=== PATIENT | female | born 1995 | race Caucasian/White ===

== ENCOUNTER → 2017-02-16 14:11 | Outpatient (CLI) | payer BC, SELFPAY ==
--- NOTE | 2017-02-16 14:20 | US_ITS ---
US thyroid HISTORY: ITS.REASON: ENLARGED THYROID ORDERING PHYSICIAN: Saul Mcmillan MD PATIENT AGE: 21 years COMPARISON: None FINDINGS: Right lobe: 4.5 x 1.7 x 2.2 cm. There is heterogeneous echogenicity. No discrete nodule identified. Left lobe: 3.9 x 1.3 x 1.9 cm. There is heterogeneous echogenicity. There is a 1 x 0.8 cm isoechoic nodule in the lower pole Isthmus: Prominent at 5 mm IMPRESSION: Mildly enlarged thyroid gland with heterogeneous echogenicity without isoechoic 1 cm nodule in the lower pole on the left with low suspicion for malignancy. Consider 6 month follow-up
== END ==
PROVIDERS: PCP Family Medicine; Visit Provider Family Medicine
DX: E04.9 Nontoxic goiter, unspecified (principal)
CPT/HCPCS: 76536

== ENCOUNTER → 2017-08-24 13:31 | Outpatient (CLI) | payer BC, SELFPAY ==
--- NOTE | 2017-08-24 13:40 | US_ITS ---
ULTRASOUND THYROID PROCEDURE: Multiple sagittal & transverse ultrasound images of the thyroid. HISTORY: COMPARISON: ----- FINDINGS: Mildly enlarged thyroid with coarse heterogeneous echogenicity throughout . The coarse appearance likely reflecting an thyroiditis/parathyroid mass or possibly developing multinodular gland changes ====== RIGHT LOBE: 4.7 cm length x 2.5 cm wide x 1.6 cm AP Nodule A: Vague Solid nodule Anterior upper pole. 10.7 mm X9 0.4 mm x 5.6 mm. But this was not specifically identified previously and I believe was evident Solid nodule difficult to discern. Only very subtle hypoechoic rim otherwise echogenicity makes it blends in with remainder of adjacent thyroid. Nodule B:. Vague Solid nodule Posterior aspect inferior right thyroid. This measures 9 mm l x 9.9 mm x 6.5 mm likely parathyroid and present previously. Nodule C:. Vague 11 mm length x 6 mm AP solid nodule of lower pole left lobe LEFT LOBE: 4.7 cm length as 1.3 cm AP x 2.1 cm height. Nodule A: Mildly hyperechoic nodule is again seen at the mid left lobe. This appears similar to previous study. The point for measurement are slightly different and when they are measure from the same point I see less perhaps a millimeter progression. Today it measures 1.2 cm length x 6.9 mm AP x 9 mm transverse. This uses the outer aspect of the hypoechoic rim as the points of measurement. Follow-up in 6 months suggested. ISTHMUS: 3.8 mm AP no nodules or IMPRESSION 1. Bilateral enlarged thyroid gland. heterogeneous very coarse thyroid. Architecture . 2. Bilateral thyroid nodules. Difficult to discern nodules from the background of the diffusely coarse thyroid. Although Additional nodules were specifically identified today but I suspect a majority were present before but become evident with today's additional detailed imaging and technique . Suggest bilateral follow-up in 6 months to again further evaluate these areas of nodularity
== END ==
PROVIDERS: PCP Family Medicine; Visit Provider Family Medicine
DX: E04.9 Nontoxic goiter, unspecified (principal)
CPT/HCPCS: 76536

== ENCOUNTER → 2018-08-06 15:25 | Outpatient (CLI) | payer BC, SELFPAY ==
--- NOTE | 2018-08-06 15:34 | US_ITS ---
US thyroid HISTORY: Follow-up thyroid nodules, enlarged thyroid gland ITS.REASON: HYPOTHYROIDISM,THYROID NODULE ORDERING PHYSICIAN: Leatha Bynum MD PATIENT AGE: 23 years Comparison: 08/24/2017 FINDINGS: The right lobe measures 4.6 x 1.6 x 1.7 cm. There are multiple thyroid nodules noted which are isoechoic. Largest nodule is in the lower pole at 1.2 cm unchanged. The left lobe is 4.6 x 1.4 x 2.1 cm. A hyperechoic nodule is present in the lower pole at 1 cm unchanged. The isthmus is unremarkable. IMPRESSION: No change in the enlarged thyroid gland with bilateral thyroid nodules which are low level of suspicion for malignancy
== END ==
PROVIDERS: PCP Family Medicine; Visit Provider Emergency Medicine
DX: E03.9 Hypothyroidism, unspecified (principal); E04.1 Nontoxic single thyroid nodule
CPT/HCPCS: 76536

== ENCOUNTER 2024-02-15 14:20 | Outpatient (CLI) | payer OTHER, SELFPAY ==
[2024-02-15 18:10] LABS: Human Rhinovirus Not Detected (NotDetected); Influenza A, PCR Not Detected (NotDetected); Influenza B, PCR Not Detected (NotDetected); Respiratory Syncytial Virus Not Detected (NotDetected)
[2024-02-15 22:45] LABS: Coronavirus 19, PCR Detected (NotDetected)
== END 2024-02-15 23:59 | disposition home or self-care (01) ==
LOC: LAB.DROPOF 02-16 10:56
PROVIDERS: PCP Nurse Practitioner Family; Visit Provider Nurse Practitioner Family
DX: R05.9 Cough, unspecified (principal); R06.2 Wheezing; R09.81 Nasal congestion
CPT/HCPCS: 87631